=== PATIENT | female | born 1945 | race Caucasian/White ===

== ENCOUNTER 2017-11-18 13:05 | Emergency (ER) | payer MEDICARE, BC, OTHER ==
[2017-11-18] MEDS: IBUPROFEN 600 MG TAB PO (14:41)
[2017-11-18] MEDS: HYDROCODONE/APAP (5/325) TAB PO (14:41)
== END 2017-11-18 15:54 | disposition home or self-care (01) ==
LOC: FTE 13:05
DX: M79.602 Pain in left arm (principal); M54.2 Cervicalgia
CPT/HCPCS: 82962; 99283

== ENCOUNTER 2017-11-27 18:00 | Emergency (ER) | payer MEDICARE, BC ==
[2017-11-27] MEDS: SOD CHLORIDE 0.9% 1,000 ML IV (20:41)
[2017-11-27] MEDS: LIDOCAINE/MYLANTA 40 ML BTL PO (20:42)
[2017-11-27] MEDS: morphine 2 MG INJ IV (20:42)
[2017-11-27] MEDS: ASPIRIN 81 MG TAB PO (20:42)
[2017-11-27] MEDS: ONDANSETRON 4 MG INJ IV (20:43)
[2017-11-27 21:16] LABS: ADD MAN DIFF? NO
[2017-11-27 21:22] LABS: WHITE BLOOD COUNT 9.8 10^3/ul (4.8-10.8)
[2017-11-27 21:22] LABS: BASOPHIL # 0.1 10^3/ul (0.0-0.1); BASOPHILS % 1.3 % (0.0-2.0); EOSINOPHILS # 0.3 10^3/ul (0.0-0.5); EOSINOPHILS % 3.4 % (0.0-7.0); HEMATOCRIT 43.3 % (37.0-47.0); HEMOGLOBIN 14.7 g/dl (12.0-16.0); LYMPHOCYTES # 2.9 10^3/ul (0.8-2.9); LYMPHOCYTES % 29.3 % (15.0-51.0); MEAN CORPUSCULAR HEMOGLOBIN 30.2 pg (29.0-33.0); MEAN CORPUSCULAR HGB CONC 33.9 g/dl (32.0-37.0); MEAN CORPUSCULAR VOLUME 89.1 fl (82.0-101.0); MEAN PLATELET VOLUME 9.6 fl (7.4-10.4); MONOCYTE # 0.6 10^3/ul (0.3-0.9); MONOCYTES % 6.3 % (0.0-11.0); NEUTROPHIL # 5.8 10^3/ul (1.6-7.5); NEUTROPHILS % 59.4 % (39.0-77.0); PLATELET COUNT 328 10^3/UL (140-415); RED BLOOD COUNT 4.86 10^6/ul (4.20-5.40); RED CELL DISTRIBUTION WIDTH 11.7 % (11.5-14.5)
[2017-11-27 21:43] LABS: ALANINE AMINOTRANSFERASE 21 IU/L (13-69); ALBUMIN 4.5 g/dl (3.3-4.9); ALBUMIN/GLOBULIN RATIO 1.66; ALKALINE PHOSPHATASE 72 IU/L (42-121); ANION GAP 12 (8-16); ASPARTATE AMINO TRANSFERASE 23 IU/L (15-46); BILIRUBIN,INDIRECT 0.6 mg/dl (0-1.1); BILIRUBIN,TOTAL 0.6 mg/dl (0.2-1.3); BLOOD UREA NITROGEN 19 mg/dl (7-20); CALCIUM 9.4 mg/dl (8.4-10.2); CARBON DIOXIDE 28 mmol/L (21-31); CHLORIDE 105 mmol/L (97-110); CREATININE 1.09 mg/dl (0.44-1.00); GLUCOSE 92 mg/dl (70-220); LIPASE 81 U/L (23-300); POTASSIUM 3.8 mmol/L (3.5-5.1); SODIUM 141 mmol/L (135-144); TOTAL PROTEIN 7.2 g/dl (6.1-8.1)
[2017-11-27 21:55] LABS: TROPONIN-I < 0.010 ng/ml (0.000-0.120)
[2017-11-27 21:55] LABS: B-TYPE NATRIURETIC PEPTIDE 99 PG/ML (0-125)
[2017-11-27 22:36] LABS: ADD UMIC YES; UR ASCORBIC ACID NEGATIVE (NEGATIVE); UR BILIRUBIN (Dip) NEGATIVE (NEGATIVE); UR BLOOD (Dip) NEGATIVE (NEGATIVE); UR CLARITY CLEAR (CLEAR); UR COLOR COLORLESS (YELLOW); UR GLUCOSE (Dip) NEGATIVE (NEGATIVE); UR KETONES (Dip) NEGATIVE (NEGATIVE); UR LEUKOCYTE ESTERASE (Dip) 1+ Leu/ul (NEGATIVE); UR NITRITE (Dip) NEGATIVE (NEGATIVE); UR RBC 1 /HPF (0-5); UR SPECIFIC GRAVITY (Dip) 1.006 (1.003-1.030); UR TOTAL PROTEIN (Dip) NEGATIVE (NEGATIVE); UR UROBILINOGEN (Dip) NEGATIVE (NEGATIVE); UR WBC 14 /HPF (0-5)
[2017-11-27] MEDS: morphine 4 MG/ML VIAL IV (23:40)
[2017-11-27] MEDS: KETOROLAC 30 MG INJ IV (23:40)
== END 2017-11-28 01:35 | disposition home or self-care (01) ==
LOC: E/R 11-28 01:35
DX: N39.0 Urinary tract infection, site not specified (principal); R07.9 Chest pain, unspecified
CPT/HCPCS: 36415; 71045; 74176; 80053; 81001; 83690; 83880; 84484; 85025; 93005; 96374; 96375; 96376; 99285-25